=== PATIENT | female | born 1945 | race Caucasian/White ===

== ENCOUNTER → 2017-10-26 08:00 | Outpatient (CLI) | payer OTHER ==
[~2017-10-26] VITALS: Ht 152.4 cm; Wt 73.5 kg
[~2017-10-26 08:00] MED LIST: CATAFLAN PO; METFORMIN HCL500 MG PO; VASOTEC20 M1 PO
== END | disposition home or self-care (01) ==
LOC: RAD 08:00 → LAB 08:00 → SURH 10-30 06:00 → O/R 10-30 06:00 → EDSTATUS 10-30 08:00 → SURH 10-30 08:00
DX: M17.12 Unilateral primary osteoarthritis, left knee (principal); Z01.810 Encounter for preprocedural cardiovascular examination; Z01.812 Encounter for preprocedural laboratory examination

== ENCOUNTER 2018-05-07 10:00 | Inpatient (IN) | payer OTHER ==
[2018-06-04] MEDS ORDERED: DICLOFENAC SODI50 MG PO (10:46)
[2018-06-08] MEDS ORDERED: INTEGRA PLUS C1 EACH PO (08:47)
[2018-06-08] MEDS ORDERED: ELIQUIS2.5 MG PO (08:47)
[2018-06-08] MEDS ORDERED: OXYC1TAB9 PO (08:47)
== END 2018-06-08 14:16 | DRG 470 ==
LOC: SURG 05-11 10:45 → SURH 06-04 05:52 → O/R 06-04 05:52 → SURH 06-04 19:00
PROVIDERS: Orthopaedic Surgery Sports Medicine
PROC: 0SRD0J9 Replacement of Left Knee Joint with Synthetic Substitute, Cemented, Open Approach (ICD-10-PCS; principal; 2018-06-04 15:30)
PROC: 30233N1 Transfusion of Nonautologous Red Blood Cells into Peripheral Vein, Percutaneous Approach (ICD-10-PCS; 2018-06-07)
DX: M17.12 Unilateral primary osteoarthritis, left knee (principal); L76.22 Postprocedural hemorrhage of skin and subcutaneous tissue following other procedure; D62 Acute posthemorrhagic anemia; E11.9 Type 2 diabetes mellitus without complications